=== PATIENT | male | born 1955 | race Caucasian/White ===

== ENCOUNTER 2021-04-04 11:37 | Emergency (ER) | payer MEDICARE, OTHER ==
[2021-04-04] MEDS ORDERED: Diphtheria,Pertussis(Acell),Tetanus Vaccine 0.5 ML SDV IM ONE (12:24)
--- NOTE | 2021-04-04 12:24 | EDM.PDOC ---
ED HPI GENERAL MEDICAL PROBLEM - General Stated Complaint: LACERATION ON LEFT HAND BY [place]THER[place] FISH Time Seen by Provider: 04/04/21 11:45 Source of Information: Reports: Patient History Limitations: Reports: No Limitations - History of Present Illness INITIAL COMMENTS - FREE TEXT/NARRATIVE: This patient presents to the ED for evaluation of a bit by a fish. He was removing a [place] from a net when the fish bit him. He has a flap type latercation to his left hand and some abrasions to his left 2nd digit. He denies other injuries or concerns. - Related Data Allergies Allergy/AdvReac Type Severity Reaction Status Date / Time No Known Allergies Allergy Verified 04/04/21 12:27 Home Meds: Home Meds cephALEXin [Keflex] 500 mg PO TID 7 Days #21 cap 04/04/21 [Rx] ED ROS GENERAL - Review of Systems Review Of Systems: Comprehensive ROS is negative, except as noted in HPI. Skin: Reports: Lesions ED EXAM, ANIMAL BITE - Physical Exam Exam: See Below Exam Limited By: No Limitations General Appearance: Alert, WD/WN, No Apparent Distress Eye Exam: Left Eye: Normal Inspection Ears: Normal External Exam Nose: Normal Inspection Head: Atraumatic, Normocephalic Neck: Normal Inspection, Full Range of Motion Respiratory/Chest: No Respiratory Distress Extremities: Normal Inspection, Normal Range of Motion, Other (full ROM left hand and each finger) Neurological: Alert, Oriented Skin Exam: Normal Color, Warm/Dry, Other (6 cm flap type laceration overlying left 2nd MCP joint) ED ANIMAL BITE PROCEDURES - Laceration/Wound Repair Left Hand Lac/Wound Length In cm: 6 Appearance: Superficial, Mildly Contaminated Distal NVT: Neuro & Vascular Intact Anesthetic Type: Local Local Anesthesia - Lidocaine (Xylocaine): 1% Plain Local Anesthetic Volume: 5cc Skin Prep: Chlorhexidine (Hibiciens), Saline Saline Irrigation (cc's): 100 Exploration/Debridement/Repair: Wound Explored, Explored to Base, No Foreign Material Found Closed With: Sutures Suture Size: 5-0 # of Sutures: 12 Suture Type: Other (Vicryl) Sterile Dressing Applied: Nurse Tetanus Status Addressed: Yes Complications: No Progress/Comments: Full ROM and CMS in left hand and each finger Course - Vital Signs Last Recorded V/S: Last Vital Signs Temp 36.6 C 04/04/21 12:28 Pulse 85 04/04/21 12:28 Resp 18 04/04/21 12:28 BP 162/111 H 04/04/21 12:28 Pulse Ox 96 04/04/21 12:28 - Orders/Labs/Meds Orders: Active Orders 24 hr Category Date Time Status Vaccines to be Administered [RC] PER UNIT ROUTINE Care 04/04/21 12:24 Ordered Meds: Medications Discontinued Medications Generic Name Dose Route Start Last Admin Trade Name Jennifer PRN Reason Stop Dose Admin Diphtheria/Tetanus/Acell Pertussis 0.5 ml 04/04/21 12:24 04/04/21 12:30 Diphtheria,Pertussis(Acell),Tetanus Vaccine 0.5 Ml Sdv IM 04/04/21 12:25 0.5 ml .ONCE ONE Administration Lidocaine HCl 5 ml 04/04/21 12:00 04/04/21 11:50 Lidocaine 1% 5 Ml Sdv INJECT 04/04/21 12:01 5 ml ONETIME ONE Administration Departure - Departure Time of Disposition: 12:25 Disposition: Home, Self-Care 01 Condition: Good Clinical Impression: Bitten by other fish, initial encounter - Discharge Information *PRESCRIPTION DRUG MONITORING PROGRAM REVIEWED*: Not Applicable Prescriptions: cephALEXin [Keflex] 500 mg PO TID 7 Days #21 cap Instructions: Animal Bite, Adult, [id number] Referrals: PCP,None [Primary Care Provider] - Forms: ED Department Discharge Additional Instructions: Discharge home. Daily dressing changes. Return to the clinic in 2 weeks to have sutures removed. Keflex 500mg 1 tablet by mouth 3 times a day for 7 days. Follow up with primary care provider as needed. Sepsis Event Note (ED) - Focused Exam Vital Signs: Vital Signs Temp Pulse Resp BP Pulse Ox 04/04/21 12:28 36.6 C 85 18 162/111 H 96 - My Orders Last 24 Hours: My Active Orders 04/04/21 12:24 Vaccines to be Administered [RC] PER UNIT ROUTINE - Assessment/Plan Last 24 Hours: My Active Orders 04/04/21 12:24 Vaccines to be Administered [RC] PER UNIT ROUTINE
== END 2021-04-04 12:40 | disposition home or self-care (01) ==
LOC: LB.ED 11:37
DX: S61.452A Open bite of left hand, initial encounter (principal); Z23 Encounter for immunization; W56.51XA Bitten by other fish, initial encounter
CPT/HCPCS: 12002; 90471; 90715; 99282-25; 99283